=== PATIENT | female | born 1965 | race Caucasian/White ===

== ENCOUNTER → 2019-10-29 | Outpatient (CLI) | payer OTHER | LOC: SJCVCIMAG 11:30 | DX: I11.9 Hypertensive heart disease without heart failure (principal); E78.5 Hyperlipidemia, unspecified; G47.33 Obstructive sleep apnea (adult) (pediatric); R23.1 Pallor; E03.9 Hypothyroidism, unspecified; Z79.899 Other long term (current) drug therapy ==